=== PATIENT | male | born 1935 | race Caucasian/White ===

== ENCOUNTER → 2016-05-27 | Day surgery (SDC) | payer MEDICARE ==
[~2016-05-27] MED LIST: FENTANYL 100 MCG/2 ML VIAL IV PRN; FENTANYL 250 MCG/5 ML VIAL IV ONE; GLUCAGON 1 MG VIAL ONE; HYDROmorphone 1 MG INJECTION IV PRN; LABETALOL 20 MG/4 ML SYRINGE IV PRN; LIDOCAINE 100 MG PFS IV ONE; Levofloxacin 500 mg/100 ml D5W 500 MG/100 ML RTU IV ONE; MEPERIDINE 25 MG/ML TUBEX IV PRN; ONDANSETRON HCL 4 MG ODT TAB PO PRN; ONDANSETRON HCL 4 MG/2 ML VIAL IV ONE; ONDANSETRON HCL 4 MG/2 ML VIAL IV PRN; PROPOFOL 200 MG/20 ML VIAL IV ONE; SUCCINYLCHOLINE 20 MG/1 ML INJ 10 ML MDV IV ONE; WATER 10 ML ONE; hydrALAZINE 20 MG/ML VIAL IV PRN
[2016-05-27 13:33] LABS: MPV 9.3 fL (7.4-10.4)
[2016-05-27 13:51] LABS: BLOOD UREA NITROGEN 12 MG/DL (9-20); CALC CORRECTED 9.3 MG/DL (8.4-10.2); CALCIUM 9.1 MG/DL (8.4-10.2); CALCULATED OSMOLALITY 268 MOs/Kg (270-290); CHLORIDE 101 mEq/L (98-107); GLUCOSE 87 mg/dL (70-99); SODIUM LEVEL 140 mEq/L (137-146)
[2016-05-27 14:05] LABS: PT-INR 1.2
--- NOTE | 2016-05-27 14:31 | HIM.ANES ---
Anesthesia Evaluation & Plan Diagnoses: DISEASE OF PANCREAS, UNSPECIFIED (05/27/16) Consented Procedure: ENDOSCOPIC RETROGRADE CHOLANGIOPANCREATOGRAPY WITH POSSIBLE STENTS - Focused Review of Systems Cardiac History: Yes: Hx Hypertension HEENT: Yes: Cataract Removal (ERIKA), Hx Dysphagia (AT TIMES), Other HEENT Problems Gastrointestinal: Yes: Hx Gastrointestinal Disorders Neurological/Musculoskeletal: Yes: Hx Numbness, Tingling, Weakness in Arms & Legs No: Hx Neurological Disorders Psychological: No Hx Mental/Emotional Disorders Endocrine: Yes: Hx Insulin Dependent Diabetes Smoking Status: Never smoker Hx Stress Test (date): Yes (YEARS AGO) - Focused Physical Exam NPO since: 05/26/16 1700 Mallampati: Class II Thyromental Distance: Greater than 3 Neck: Full Range of Motion Dental: Normal - no significant findings Cardiovascular/Chest: Normal Respiratory: Lungs clear Any problems with anesthesia, including nausea and vomiting?: No Any relatives with a history of Malignant Hyperthermia?: No Beta Geraldine given (if appropriate): N/A Other: PT/PTT/INR/ PT 11.9 SEC (9.2-11.2) H 05/27/16 13:25 INR 1.2 05/27/16 13:25 CBC/BMP/Other 05/27/16 13:25 05/27/16 13:25 Allergies Allergy/AdvReac Type Severity Reaction Status Date / Time No Known Allergies Allergy Verified 05/27/16 13:44 Home Medications Medication Instructions Recorded Last Taken Type Cholecalciferol (Vitamin D3) 1,000 unit PO DAILY 05/27/16 05/26/16 History [Vitamin D3] Hydrochlorothiazide 25 mg PO DAILY 05/27/16 Unknown History Insulin Detemir [Levemir] 35 unit SQ DAILY 05/27/16 05/27/16 09:00 History Metformin HCl 1,000 mg PO BID 05/27/16 05/26/16 History Niacin 500 mg PO DAILY 05/27/16 05/26/16 History [place]-3 Fatty Acids/Fish Oil [Fish 1 each PO BID 05/27/16 05/26/16 History Oil 1,000 mg Capsule] Silodosin [Rapaflo] 4 mg PO DAILY 05/27/16 05/26/16 History Height and Weight Patient's height 5 ft 10 in Patient's weight 85.275 kg Vital Signs Temperature Pulse Rate 73 05/27/16 13:50 Respiratory Rate 18 05/27/16 13:50 Blood Pressure 157/70 05/27/16 13:50 Pulse Oxygen Saturation 100 05/27/16 13:50 - Anesthetic Plan Anesthesia Type: General ASA Class: 3 -: I have examined this patient and reviewed the medical record. The patient has been assessed prior to anesthesia. Risks and benefits of anesthesia and anesthetic technique options have been discussed and all questions answered. The patient accepts the risk and desires me to proceed with the planned anesthetic.
--- NOTE | 2016-05-27 16:31 | HIMOPRPT ---
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 Informed consent was obtained from the patient. The risks including the risks of bleeding at less than 1% requiring blood transfusions, perforation at less than 1% requiring laparotomy, pancreatitis at an average of 10% with serious pancreatitis requiring prolonged hospitalization at less than 1% were discussed. The risks of anesthesia were also discussed. The benefits were also discussed. Alternatives were also given including transferring to a tertiary care center. The patient wishes to proceed here. MEDICATIONS: As per Anesthesia. DESCRIPTION OF THE PROCEDURE: The patient was placed in the ERCP prone position by anesthesia. The Olympus video side-viewing duodenoscope was passed to the second portion of the duodenum. Limited examination was performed since it was a side-viewing scope. FINDINGS: GASTRIC ANTRUM: Deformed but Normal. DUODENUM: Deformed MAJOR PAPILLA: Normal. Photodocumentation was obtained. PANCREATIOGRAM: Not obtained CHOLANGIOGRAM: The common bile duct was cannulated using fusion OMNI sphincterotome and Isoview injected. A very tight distal CBD stricture was noted measuring 3 cm with significant proximal CBD dilatation to approximately 3.5 cm. There was significant dilatation of the biliary tree. Despite of multiple attempts, 0.035 and then 0.021 wire could not be inserted across the tight CBD stricture. There was small submucosal injection as well. The wire kept coming back and would not traverse the stricture. Radiologic photo documentation was obtained. COMPLICATIONS: There were no immediate complications. 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 IV Fluids. 2. Watch for delayed complications. 3. Since we were unable to traverse the stricture, would recommend attempting ERCP with stenting at a tertiary care center. If unable to do that, then he may need drainage by means of a percutaneous transhepatic drainage by interventional radiologist. I have discussed risks and benefits of each approach with the patient's family. Once patient's son decides regarding the tertiary care center, then we will get in touch with gastroenterology there. 4. Await results of CA 19-9.
[2016-05-27 16:59] VITALS: TEMP 97
[2016-05-27 17:00] VITALS: PULSE 68
[2016-05-27 17:07] VITALS: BP 114/66
--- NOTE | 2016-05-27 17:07 | SC.ANESPOS ---
Post-Anesthesia Note LOC: Fully Awake Post-Anesthesia Assessment: Awake, Returned to Baseline, Hemodynamically Stable , Pain Control Adequate Phase I & II Recovery Complete: Yes Apparent Anesthesia Complication: No : N PACU Discharge Time: 16:23 - Vital Signs Blood Pressure: 114/66 Pulse: 68 Resp Rate: 18 O2 Sat: 100 Temp: 97 F - Comments Anesthesia Discharge Time Report Time 16:23
== END ==
LOC: SDC 13:01 → EDSTATUS 14:00
PROVIDERS: ATTEND Internal Medicine Gastroenterology
PROC: 0FJB8ZZ Inspection of Hepatobiliary Duct, Via Natural or Artificial Opening Endoscopic (ICD-10-PCS; principal; 2016-05-27 14:00)
DX: K86.89 Other specified diseases of pancreas (principal); K83.1 Obstruction of bile duct; I10 Essential (primary) hypertension; E11.9 Type 2 diabetes mellitus without complications; Z79.4 Long term (current) use of insulin; E78.5 Hyperlipidemia, unspecified; Z79.899 Other long term (current) drug therapy
CPT/HCPCS: 43260; 80053; 82248; 82962; 85027; 85610; 86301; J1610; J1956; J0330; J2001; J2405; J3010; J3490